=== PATIENT | female | born 1990 | race Caucasian/White ===

== ENCOUNTER 2023-11-14 17:23 | Emergency (ER) | payer SELFPAY ==
[2023-11-14 17:30] VITALS: BP 137/99; PULSE 99; TEMP 36.8; O2SAT 99; BMI 43.3
--- NOTE | 2023-11-14 17:40 | ED_ITS ---
HPI HPI - Back Pain/Injury General Chief Complaint: Back Pain/Injury Stated Complaint: lower back pain, foot numbness Time Seen by Provider: 11/14/23 17:31 Source: patient Mode of arrival: walk-in Limitations: no limitations History of Present Illness HPI Narrative: 33-year-old female presents for lower back pain that she has had for a month. Intermittently the toes of her right foot will go numb. She has not had any weakness and there is been no injury. The pain does not seem to radiate down the leg. No dysuria or hematuria or abdominal pain. No symptoms on the left side. Related Data Home Medications ?Medication ?Instructions ?Recorded ?Confirmed No Known Home Medications 11/14/23 11/14/23 Previous Rx's ?Medication ?Instructions ?Recorded prednisone 10 mg tablet See Rx Instructions .Route 11/14/23 .COMPLEX #30 tabs Allergies Allergy/AdvReac Type Severity Reaction Status Date / Time No Known Drug Allergies Allergy Verified 11/14/23 17:36 Opioid HPI Opioid Management Most Recent Opioid Data: No Data to Display Review of Systems ROS Narrative A ten point review of systems is negative except as noted above. Exam Narrative Exam Narrative: Nurses note and vital signs reviewed and patient is not hypoxic. General: The patient appears well and in no apparent distress. Patient is resting comfortably on cart. Skin: Warm, dry, no pallor noted. There is no rash noted. Head: Normocephalic, atraumatic Eye: Normal conjunctiva, no drainage Ears, Nose, Mouth, and Throat: oral mucosa is moist. Nares patent. Cardiovascular: Regular Rate and Rhythm Respiratory: Patient is in no distress, no accessory muscle use, lungs are clear to auscultation, no wheezing, rales or rhonchi Back: No bruise or rash or erythema. No palpable tenderness GI: Obese soft and nontender Musculoskeletal: The patient has no evidence of calf tenderness, no pitting edema, symmetrical pulses noted bilaterally Neurological: A&O, normal speech; motor strength intact in her lower extremity Psychiatric: Cooperative Constitutional Vital Signs, click to edit/add: Last Vital Signs Temp 98.3 F 11/14/23 17:30 Pulse 99 H 11/14/23 17:30 Resp 20 11/14/23 17:30 BP 137/99 H 11/14/23 17:30 Pulse Ox 99 11/14/23 17:30 O2 Del Method Room Air 11/14/23 17:30 Course Vital Signs Vital signs: Vital Signs Temperature 98.3 F 11/14/23 17:30 Pulse Rate 99 H 11/14/23 17:30 Respiratory Rate 20 11/14/23 17:30 Blood Pressure 137/99 H 11/14/23 17:30 Pulse Oximetry 99 11/14/23 17:30 Oxygen Delivery Method Room Air 11/14/23 17:30 Temperature 98.3 F 11/14/23 17:30 Pulse Rate 99 H 11/14/23 17:30 Respiratory Rate 20 11/14/23 17:30 Blood Pressure 137/99 H 11/14/23 17:30 Pulse Oximetry 99 11/14/23 17:30 Oxygen Delivery Method Room Air 11/14/23 17:30 MDM - Back Pain/Injury MDM Narrative Medical decision making narrative: X-ray findings are discussed with the patient and she is prescribed prednisone. She will follow-up with her doctor if there is no improvement. Treatment diagnosis and follow-up were discussed with the patient. Differential Diagnosis Differential diagnosis: Likely lumbar radiculopathy and sciatica Imaging Data Lumbar x-rays: Radiologist's impression: ITS Impressions Lumbar Spine X-Ray 11/14/23 17:40 IMPRESSION: 1. 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 2. No acute osseous abnormality. Electronically authenticated by: CAROLYN DUNLAP Date: 11/14/2023 18:37 Discharge Plan Discharge Stand Alone Forms: Portal Instructions Chief Complaint: Back Pain/Injury Clinical Impression: Low back pain, Paresthesia Patient Disposition: Home, Self-Care Time of Disposition Decision: 18:46 Condition: Good Mode of Transportation: Private Vehicle Prescriptions / Home Meds: New prednisone 10 mg tablet See Rx Instructions .ROUTE .COMPLEX Qty: 30 0RF Rx Instructions: 4 by mouth daily for three days then 3 by mouth daily for three days then 2 by mouth daily for three days then 1 by mouth daily for three days No Action No Known Home Medications Print Language: [place]se Instructions: Acute Low Back Pain (ED), Paresthesia (ED) Additional Instructions: Follow-up with PCP if no improvement Referrals: Physician,Non-Staff, MD [Primary Care Provider] - 1 week
--- NOTE | 2023-11-14 17:40 | XR_ITS ---
The [place] [id number] Patient Name: CANDACE WILSON MRN: [id number] date: 1990 Sex: F Assigned Patient Location: ER Current Patient Location: ER Accession/Order Number: [id number] Exam Date: 11/14/2023 17:50 Report Date: 11/14/2023 18:37 At the request of: SOREN VILLASEÑOR Procedure: XR lumbar spine 2-3V EXAMINATION: XR lumbar spine 2-3V, [id number] HISTORY: Low back pain, atraumatic COMPARISON: None. FINDINGS: There are 5 nonrib-bearing lumbar-type vertebral bodies (hypoplastic ribs at T12). No acute fracture or suspicious osseous lesion. Spinal alignment is within normal limits. Mild disc height loss and osteophytic lipping at L4-L5. Soft tissues are within normal limits. XR/XR lumbar spine 2-3V IMPRESSION: 1. 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 2. No acute osseous abnormality. Electronically authenticated by: CAROLYN DUNLAP Date: 11/14/2023 18:37
== END 2023-11-14 19:03 | disposition home or self-care (01) ==
PROVIDERS: Emergency Provider Emergency Medicine
DX: M54.50 Low back pain, unspecified (principal); R20.2 Paresthesia of skin
CPT/HCPCS: 72100; 99283

== ENCOUNTER 2024-01-14 10:25 | Emergency (ER) | payer SELFPAY ==
[2024-01-14 10:29] VITALS: BP 138/89; PULSE 103; TEMP 37.2; O2SAT 98; BMI 44.6
--- NOTE | 2024-01-14 10:49 | US_ITS ---
The [address] [address] Patient Name: CANDACE WILSON MRN: [id number] date: 1990 Sex: F Assigned Patient Location: ED.MAIN Current Patient Location: ER Accession/Order Number: [id number] Exam Date: 01/14/2024 10:50 Report Date: 01/14/2024 11:35 At the request of: RILEY RODRÍGUEZ Procedure: US venous doppler LE RT EXAMINATION: US venous doppler LE RT HISTORY: R leg pain COMPARISON: No relevant comparison available. FINDINGS: REGION: Right lower extremity THROMBI: None. COMPRESSIBILITY: Normal compressibility. FLOW: Normal waveform and antegrade flow between 5 and 20 cm/s. OTHER: None. US/US venous doppler LE RT IMPRESSION: 1. No deep vein thrombus within the right lower extremity. Electronically authenticated by: SCARLET MANCILLA Date: 01/14/2024 11:35
[2024-01-14 10:56] LABS: Bilirubin Urine NEGATIVE (NEGATIVE); Blood Urine NEGATIVE (NEGATIVE); Clarity Urine CLEAR (CLEAR); Color Urine DK. YELLOW (YELLOW); Glucose Urine UA NEGATIVE (NEGATIVE); Ketones Urine NEGATIVE (NEGATIVE); Leukocyte Esterase Urine NEGATIVE (NEGATIVE); Nitrite Urine NEGATIVE (NEGATIVE); Protein Urine NEGATIVE (NEG/TRACE); Specific Gravity Urine >=1.030 (1.005-1.025); Urobilinogen Urine 0.2 EU/dL (0.2-1.0)
[2024-01-14 10:57] LABS: Urine Microscopic Indicated NO
[2024-01-14 10:59] LABS: HCG Qualitative Urine* NEGATIVE (NEGATIVE); Internal Control Within Normal Limits
--- NOTE | 2024-01-14 11:19 | ED.GENADUL1 ---
HPI HPI - General Adult General Chief complaint: Extremity Problem, Nontraumatic Stated complaint: LOWER EXTREMITY PAIN Time Seen by Provider: 01/14/24 10:28 History of Present Illness HPI narrative: Patient presents to ED complaining of right lower extremity pain. She reports that she was here 2 months ago and diagnosed with sciatic pain. She had x-rays of her back which showed arthritis. She has no insurance so she has not been able to get further follow-up care. She said recently the pain has been worse. She bent over to package pick up a pallet and had shooting pain into her leg. She reports the pain and tingling is on the right lower extremity on the lateral aspect of the calf. She does not really have a lot of back pain but she feels it more in the distal part of the leg. No abdominal pain no fevers. Denies IV drug abuse denies blood thinners. Alert and oriented at this time, tearful due to pain and patient is frustrated because she states she tried to follow-up with a specialist but they will not see her until she has an MRI completed. She does not have a family doctor or anyone to order the MRI for her at this time. Related Data Previous Rx's ?Medication ?Instructions ?Recorded prednisone 10 mg tablet See Rx Instructions .Route 11/14/23 .COMPLEX #30 tabs oxycodone-acetaminophen 5 mg-325 1 tab PO Q6H #14 tabs 01/14/24 mg tablet (Percocet) Allergies Allergy/AdvReac Type Severity Reaction Status Date / Time No Known Drug Allergies Allergy Verified 11/14/23 17:36 Opioid HPI Opioid Management Most Recent Opioid Data: Last Pain Scale 7 01/14/24 11:35 Last MAR Pain Assessment 01/14/24 11:35 Review of Systems ROS Status of ROS 10 or more systems reviewed and unremarkable except as noted in history and below Exam Narrative Exam Narrative: General: alert, no acute distress Cardiovascular: regular rate and rhythm, normal peripheral perfusion. Respiratory: Lungs CTA, respirations non labored. Extremities: no deformity, no trauma. Tenderness to palpation in the right lower extremity between the knee and ankle more to the lateral aspect of the calf. Patient reports burning and tenderness to palpation. She does have normal distal pulses and sensation. She is able to push and pull with her feet but she states that elicits pain when she does plantarflex and dorsiflex on the right. No loss of bowel or bladder function patient denies any saddle anesthesia Neurological: oriented x 4, LOC appropriate for age. Constitutional Vital Signs, click to edit/add: Last Vital Signs Temp 99 F 01/14/24 10:29 Pulse 103 H 01/14/24 10:29 Resp 20 01/14/24 10:29 BP 138/89 01/14/24 10:29 Pulse Ox 98 01/14/24 10:29 O2 Del Method Room Air 01/14/24 10:29 Course Vital Signs Vital signs: Vital Signs Temperature 99 F 01/14/24 10:29 Pulse Rate 103 H 01/14/24 10:29 Respiratory Rate 20 01/14/24 10:29 Blood Pressure 138/89 01/14/24 10:29 Pulse Oximetry 98 01/14/24 10:29 Oxygen Delivery Method Room Air 01/14/24 10:29 Temperature 99 F 01/14/24 10:29 Pulse Rate 103 H 01/14/24 10:29 Respiratory Rate 20 01/14/24 10:29 Blood Pressure 138/89 01/14/24 10:29 Pulse Oximetry 98 01/14/24 10:29 Oxygen Delivery Method Room Air 01/14/24 10:29 Medical Decision Making MDM Narrative Medical decision making narrative: Patient had been diagnosed with sciatica previously and states the steroids did not help. Most of her pain for me is in the right calf area so ultrasound was ordered to rule out DVT. Ultrasound today for DVT. Urine shows no . Most likely has sciatic nerve pain affecting the lower extremity. Patient was given referral to spine surgery and primary doctors Return to ED if worsening symptoms Differential Diagnosis Differential Diagnosis: Sciatica, DVT, Lab Data Labs: Lab Results 01/14/24 Range/Units 10:44 Urine Color Dk. yellow (YELLOW) Urine Clarity Clear (CLEAR) Urine pH 6.0 (5.0-9.0) Ur Specific [place] >=1.030 A (1.005-1.025) Urine Protein Negative (NEG/TRACE) mg/dL Urine Glucose (UA) Negative (NEGATIVE) mg/dL Urine Ketones Negative (NEGATIVE) mg/dL Urine Occult Blood Negative (NEGATIVE) Urine Nitrite Negative (NEGATIVE) Urine Bilirubin Negative (NEGATIVE) Urine Urobilinogen 0.2 (0.2-1.0) EU/dL Ur Leukocyte Esterase Negative (NEGATIVE) Urine HCG, Qual Negative (NEGATIVE) Imaging Data Chest x-ray: Radiologist's impression: ITS Impressions Venous Doppler Study 01/14/24 10:49 IMPRESSION: 1. No deep vein thrombus within the right lower extremity. Electronically authenticated by: SCARLET MANCILLA Date: 01/14/2024 11:35 Discharge Plan Discharge Stand Alone Forms: Portal Instructions Chief Complaint: Extremity Problem, Nontraumatic Clinical Impression: Low back pain, Leg pain, right Patient Disposition: Home, Self-Care Time of Disposition Decision: 11:40 Mode of Transportation: Private Vehicle Prescriptions / Home Meds: New oxycodone-acetaminophen [Percocet] 5-325 mg tablet 1 tab PO Q6H Qty: 14 0RF No Action prednisone 10 mg tablet See Rx Instructions .ROUTE .COMPLEX Qty: 30 0RF Rx Instructions: 4 by mouth daily for three days then 3 by mouth daily for three days then 2 by mouth daily for three days then 1 by mouth daily for three days Print Language: Monegasque Instructions: Acute Low Back Pain (ED), Leg Pain (ED) Referrals: Physician,Non-Staff, MD [Primary Care Provider] - 1 week
[2024-01-14] MEDS: KETOROLAC TROMETHAMINE 60 MG/2 ML VIAL IM (11:35)
[2024-01-14 11:56] VITALS: BP 138/76; O2SAT 99
== END 2024-01-14 11:57 | disposition home or self-care (01) ==
PROVIDERS: Emergency Provider Emergency Medicine
DX: M79.604 Pain in right leg (principal); M54.50 Low back pain, unspecified
CPT/HCPCS: 81003; 84703; 93971; 96372; 99284; J1885